=== PATIENT | female | born 1985 | race Caucasian/White ===

== ENCOUNTER 2019-01-24 03:50 | Inpatient (IN) | payer OTHER ==
[2019-01-24] MEDS ORDERED: ELECTROLYTE-148 SOLN 500 ML IV ONE (04:38)
[2019-01-24] MEDS ORDERED: CITRIC ACID/SODIUM CITRATE 30 ML UNIT-DOSE CUP PO ONE (04:38)
--- NOTE | 2019-01-24 04:48 | HP ---
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: Alzheimer's, CVA, Dementia, Migraine, Multiple Sclerosis, Peripheral Neuropathy, Parkinson's, Seizure, Syncope, TIA, Vertigo, Other Cardiovascular: No: AFIB, Aneurysm, Aortic Insufficiency, Aortic Stenosis, CAD, CHF, Deep Vein Thrombosis, HTN, Hyperlipdemia, [place], Mitral Insufficiency, Mitral Stenosis, Murmur, Pulmonary Hypertension, Other Pulmonary: No: Asthma, Bronchitis, Cancer, COPD, O2 Dependent, Pneumonia, Previously Intubated, Pulmonary Embolus, Pulmonary Fibrosis, Sleep Apnea, Other Gastrointestinal: No: Ascites, Cancer, Constipation, Crohn's Disease, Diverticulitis, Diverticulosis, Esophageal Varices, Gastritis, GERD, GI Bleed, Hemorrhoids, Hiatal Hernia, Inflamatory Bowel Disease, Irritable Bowel Disease, Pancreatitis, Peptic Ulcer Disease, Ulcerative Colitis, Other Hepatobiliary: No: Cirrhosis, Cholelithiasis, Cholecystitis, Choledocholithiasis , Hepatitis A, Hepatitis B, Hepatitis C, Other Renal/: No: Renal Failure, Renal Inusuff, BPH, Cancer, Hematuria, Hemodialysis , Neurogenic Bladder, Renal Calculi, UTI, Other Reproductive: No: Ectopic , Endometriosis, Fibroids, PID, Polycystic Ovary Syndrome, Postmenopausal, Other ...: 1 ...Para: 0 ...Term: 0 ... Weeks Gestation by Dates: 39 ...EDC by Dates: 01/31/19 Heme/Onc: No: Anemia, B12 Deficiency, Bleeding Disorder, Cancer, Current Chemotherapy, Current Radiation Therapy, Hemochromatosis, Hypercoaguable State, Myeloproliferative Synd, Sickle Cell Disease, Sickle Cell Trait, Thrombocytopenia, Other Infectious Disease: No: AIDS, C-Diff, Herpes Zoster, HIV, MRSA, STD's, Tuberculosis, VREF, Other Psych: No: Addictions, Anxiety, Bipolar, Depression, Panic, Psychosis, Schizophrenia, Other Musculoskeletal: No: Bursitis, Chronic low back pain, Hemiparesis, Hemiplegia, Osteoarthritis, Paraplegia, Other Rheumatology: No: Fibromyalgia, Gout, Lupus, Rheumatoid Arthritis, Sarcoidosis, Vasculitis, Other ENT: No: Allergic Rhinitis, Sinusitis, Other Endocrine: No: [place]'s Disease, Mayra's Disease, Diabetes Insipidus, Diabetes Mellitus, Hyperparathyroidism, Hyperthyroidism, Hypothyroidism, Osteopenia, SIADH, Other Dermatology: No: Basal Cell, Cellulitis, Eczema, Melanoma, Psoriasis, Squamous Cell, Other - Past Surgical History Past Surgical History: No: None, AAA Repair, AICD, Amputation, Appendectomy, Arthrosocopy, AV Fistula/Graft, Bariatric Surgery, Breast Biopsy, Bypass, CABG, Carotid Endarterectomy, Cataract Removal, Cholecystectomy, Colectomy, Colonoscopy, Colostomy, Craniotomy, , Cystectomy, Hernia Repair, Hysterectomy, Ileal Conduit, Ileosotomy, Joint Replacement, Kidney Transplant, Laminectomy, Liver Transplant, Mastectomy, Nephrectomy, Oopherectomy, Orchiectomy, Permanent Pacemaker, Prostatectomy, Splenectomy, Stent, Thoracotomy , TURP, Tonsillectomy, Tubal Ligation, Upper Endoscopy, Valve Replacement, Vasectomy, Vein Stripping/Ligation Hx Myomectomy: No Hx Transabdominal Cerclage: No - Advance Directives Advance Directives: No: Living Will, Health Care Proxy, DNR, Organ Donor, Tissue Donor, MOLST - Smoking History Smoking history: Current every day smoker Have you smoked in the past 12 months: No - Alcohol/Substance Use Hx Alcohol Use: No History of Substance Use: reports: None - Social History Usual Living Arrangement: Yes: With Significant Other ADL: Independent History of Recent Travel: No Family Disease History - Family Disease History Family History: Denies Review of Systems - Review of Systems Constitutional: reports: No Symptoms Eyes: reports: No Symptoms HENT: reports: No Symptoms Neck: reports: No Symptoms Cardiovascular: reports: No Symptoms Respiratory: reports: No Symptoms Gastrointestinal: reports: No Symptoms Genitourinary: reports: No Symptoms Breasts: reports: No Symptoms Reported Musculoskeletal: reports: No Symptoms Integumentary: reports: No Symptoms Neurological: reports: No Symptoms Endocrine: reports: No Symptoms Hematology/Lymphatic: reports: No Symptoms Psychiatric: reports: No Symptoms Pain Intensity: 0 Physical Exam - Maternity Constitutional: Yes: Well Nourished, No Distress, Calm Eyes: Yes: WNL, Conjunctiva Clear, EOM Intact HENT: Yes: WNL, Atraumatic, Normocephalic Neck: Yes: WNL, Supple, Trachea Midline Cardiovascular: Yes: WNL, Regular Rate and Rhythm Lungs: Clear to auscultation Breast(s): Yes: WNL - Abdominal Exam/OB Fundal Height: 36 Number of Fetuses: Single Presentation: Vertex Contractions: Yes Regularity: Regular Intensity: Mild/Mod Monitor Mode: External Heart Rate Location: [facility] Category: I Accelerations: Uniform Decelerations: None - Vaginal Exam/OB Vaginal Bleediing: No Speculum Exam: No Dilatation (cm): 1 Effacement (%): 20 Amniotic Membrane Status: Intact Presentation: Vertex/Position Station: -3 - Physical Exam Musculoskeletal: Yes: WNL Extremities: Yes: WNL Edema: Yes Edema: LUE: 1+, RUE: 1+, LLE: 1+, RLE: 1+ Integumentary: Yes: WNL Deep Tendon Reflex Grade: Normal +2 ...Motor Strength: WNL Psychiatric: Yes: WNL, Alert, Oriented Hemorrhage Risk Assessment - Risk Factors Risk Score: 1 Risk Level: Medium Risk Assessment/Plan for c s as 5% bpd iugr, 5lb 12 oz, scheduled for monday, in labor now, for c s
[2019-01-24 05:35] VITALS: BMI 29.0
[2019-01-24] MEDS: ELECTROLYTE-148 SOLN 1,000 ML IV SCH (05:45)
[2019-01-24] MEDS ORDERED: ACETAMINOPHEN 325 MG TABLET (FP) PO PRN ×2 (06:07→07:52)
[2019-01-24] MEDS ORDERED: ONDANSETRON 4 MG/2 ML VIAL IVPUSH PRN (06:07)
[2019-01-24] MEDS ORDERED: morphine SULFATE/PF 0.5 MG/ML (2cc Syringe - QUVA) ONE (06:16)
[2019-01-24] MEDS ORDERED: ceFAZolin SODIUM 1 GM VIAL ONE ×2 (06:30)
[2019-01-24] MEDS ORDERED: PHENYLEPHRINE HCL 10 MG/1 ML SINGLE DOSE VIAL ONE (06:32)
[2019-01-24] MEDS ORDERED: OXYTOCIN 10 UNITS/ML VIAL ONE (06:42)
[2019-01-24] MEDS ORDERED: IBUPROFEN 600 MG TABLET (FP) PO PRN (07:52)
[2019-01-24] MEDS ORDERED: oxyCODONE HCL 5 MG TABLET PO PRN (07:52)
[2019-01-24] MEDS ORDERED: METHYLERGONOVINE MALEATE 0.2 MG/1 ML AMP IM PRN (07:52)
--- NOTE | 2019-01-24 07:52 | OP ---
Operative Note - Note: Operative Date: 01/24/19 Pre-Operative Diagnosis: iugr, bpd 5 %, asymmetrical Operation: primary lt cs Findings: can x 1 Post-Operative Diagnosis: Same as Pre-op Surgeon: Pawan Chiang Assistant Director Of Security: Ajith Wayne Anesthesiologist/PROVIDER RELATIONS COORDINATOR: Karsten Olmstead Anesthesia: Spinal Estimated Blood Loss (mls): 500 Operative Report Dictated: Yes
[2019-01-24] MEDS ORDERED: OXYTOCIN 20 UNITS in 0.9% NS 20 UNIT/1,000 ML INFUS.BAG IV ONE (08:48)
[2019-01-24] MEDS: ENOXAPARIN NA (PORCINE) 40 MG/0.4 ML DISP.SYRIN SQ SCH (11:12)
[2019-01-24] MEDS: IBUPROFEN 800 MG/8 ML IJ IVPB PRN (16:12)
[2019-01-24] MEDS: SIMETHICONE 80 MG TAB.CHEW (FP) PO PRN (20:57)
[2019-01-25] MEDS: IBUPROFEN 800 MG/8 ML IJ IVPB PRN (03:52)
[2019-01-25] MEDS ORDERED: BISACODYL 10 MG SUPP.RECT RC PRN (07:58)
[2019-01-25 09:02] LABS: BASO % 0.4 % (0-2.0); EOS % 0.7 % (0-4.5); HEMATOCRIT 31.3 % (32.4-45.2); HEMOGLOBIN 10.4 GM/dL (10.7-15.3); LYMPH % 11.3 % (8-40); MCH 29.3 pg (25.7-33.7); MCHC 33.1 g/dl (32.0-36.0); MEAN CELL VOLUME 88.4 fl (80-96); MEAN PLT VOLUME 10.5 fl (7.5-11.1); MONO % 4.7 % (3.8-10.2); NEUT % 82.9 % (42.8-82.8); PLATELET COUNT 171 K/MM3 (134-434); RBC 3.55 M/mm3 (3.60-5.2); RDW 13.6 % (11.6-15.6); WHITE BLOOD COUNT 12.9 K/mm3 (4.0-10.0)
[2019-01-25] MEDS: oxyCODONE HCL 5 MG TABLET PO PRN ×2 (09:40→16:22)
[2019-01-25] MEDS: SIMETHICONE 80 MG TAB.CHEW (FP) PO PRN ×2 (09:40→16:21)
[2019-01-25] MEDS: IBUPROFEN 600 MG TABLET (FP) PO PRN ×2 (09:41→16:21)
[2019-01-25] MEDS: ENOXAPARIN NA (PORCINE) 40 MG/0.4 ML DISP.SYRIN SQ SCH (09:41)
[2019-01-25] MEDS ORDERED: DIPHTH,PERTUSS(ACELL),TET 0.5 ML DISP.SYRIN IM ONE (10:00)
[2019-01-25] MEDS: ELECTROLYTE-148 SOLN 1,000 ML IV SCH (11:11)
[2019-01-25] MEDS: D5W-LR W/ 20 UNITS OXYTOCIN 20 UNIT/1,000 ML INFUS.BAG IV SCH (11:11)
[2019-01-25] MEDS: DEXTROSE 5%-LACTATED RINGERS 1,000 ML IV SCH (11:11)
--- NOTE | 2019-01-25 16:20 | PN ---
Post Progress Note Post Day: 1 Type of Delivery: Primary C/S Vital Signs: Vital Signs Temperature 97.9 F 01/25/19 10:00 Pulse Rate 62 01/25/19 10:00 Respiratory Rate 20 01/25/19 10:00 Blood Pressure 118/66 01/25/19 10:00 O2 Sat by Pulse Oximetry (%) 100 01/24/19 07:35 Breast Exam: Yes: Soft Uterus: Yes: Fundus Firm, Fundus below umbilicus Incision: Yes: Dressing dry and intact, Sutures intact Abdomen/GI: Yes: Abdomen soft, Passing flatus, Tolerating PO Lochia: Yes: Serosa Lochia, amount: Small Extremities: Yes: Calves non-tender Perineum: Yes: Intact Activity: Ambulating - Labs Labs: CBC WBC 12.9 K/mm3 (4.0-10.0) H 01/25/19 07:31 RBC 3.55 M/mm3 (3.60-5.2) L 01/25/19 07:31 Hgb 10.4 GM/dL (10.7-15.3) L 01/25/19 07:31 Hct 31.3 % (32.4-45.2) L 01/25/19 07:31 MCV 88.4 fl (80-96) 01/25/19 07:31 MCH 29.3 pg (25.7-33.7) 01/25/19 07:31 MCHC 33.1 g/dl (32.0-36.0) 01/25/19 07:31 RDW 13.6 % (11.6-15.6) 01/25/19 07:31 Plt Count 171 K/MM3 (134-434) D 01/25/19 07:31 MPV 10.5 fl (7.5-11.1) 01/25/19 07:31 Absolute Neuts (auto) 10.7 K/mm3 (1.5-8.0) H 01/25/19 07:31 Neutrophils % 82.9 % (42.8-82.8) H D 01/25/19 07:31 Lymphocytes % 11.3 % (8-40) D 01/25/19 07:31 Monocytes % 4.7 % (3.8-10.2) 01/25/19 07:31 Eosinophils % 0.7 % (0-4.5) 01/25/19 07:31 Basophils % 0.4 % (0-2.0) 01/25/19 07:31 Nucleated RBC % 0 % (0-0) 01/25/19 07:31 Assessment/Plan dressing removed, no complications
[2019-01-26] MEDS: SIMETHICONE 80 MG TAB.CHEW (FP) PO PRN ×3 (02:42→19:10)
[2019-01-26] MEDS: IBUPROFEN 600 MG TABLET (FP) PO PRN ×2 (02:42→19:10)
[2019-01-26] MEDS: oxyCODONE HCL 5 MG TABLET PO PRN ×3 (02:43→19:11)
--- NOTE | 2019-01-26 05:12 | OP ---
DATE OF OPERATION: 01/24/2019 PREOPERATIVE DIAGNOSIS: aSymmetrical intrauterine growth retardation, in labor. POSTOPERATIVE DIAGNOSIS: aSymmetrical intrauterine growth retardation, in labor. PROCEDURE: Primary low transverse section. SURGEON: Pawan Green MD SOFT SUGAR CUTTER: AMY Major ANESTHESIOLOGIST: . ANESTHESIA: Spinal. BLOOD LOSS: About 500 mL. INDICATION: This is a 33-year-old female patient late transfer from [place]. Patient came to [place] at around 24 weeks and started here and patient had care in [place]. Patient was found to be IUGR. The baby was about 10th percentile. Has been confirmed by Dr. Chung and the patient's bBd, the head, was persistently less than 10th percentile compared to other part of the body. Estimated weight is about 5 pounds 12 ounces at 39 weeks so patient was scheduled for at 39 weeks and 1 day. Also, the Doppler has been checked and was found to be normal and so patient was advised to be delivered at around 39 weeks. So patient was scheduled for at 39 weeks on January 25. However, patient came to labor in active labor, every 3 minutes marj on January 24 so patient was admitted and patient was prepared and then was taken to the OR for primary low transverse section. PROCEDURE: Patient was placed on the operating table in the supine position. After spinal anesthesia was obtained the patient's abdomen and pelvis were prepped and draped in the usual sterile manner. Pfannenstiel incision was made through the skin, subcutaneous tissue until the fascia was nicked in the midline. The fascia extended bilaterally. Intraperitoneal cavity was entered. Bladder flap was not created. Low transverse segment was entered. Baby delivered from LOT position. There was a cord around the neck x1. Baby was handed over to head greenskeeper after the umbilical cord doubly clamped and cut. Cord blood gas obtained. Placenta was removed. Uterus closed in single layer , first layer interlocking Vicryl sutures. Good hemostasis. Both gutters were cleaned. Both ovaries, fallopian tubes, uterus were within normal limits. No complication. Patient tolerated procedure well. Peritoneum was closed. Fascia was closed. Skin was closed. Transferred to recovery room in stable condition. Blood loss about 500 mL. PAWAN GREEN MD [id number] MTDD
--- NOTE | 2019-01-26 09:00 | PN ---
Progress Note (short form) - Note Progress Note: S/P C section under spinal anesthesia with duramorph uneventful.Patient stable and has little pain for which she is on medication.No any anesthesia related problem.Patient Dc from the anesthesia care.
[2019-01-26] MEDS: DEXTROSE 5%-LACTATED RINGERS 1,000 ML IV SCH ×2 (09:23→19:01)
[2019-01-26] MEDS: D5W-LR W/ 20 UNITS OXYTOCIN 20 UNIT/1,000 ML INFUS.BAG IV SCH ×2 (09:23→19:01)
[2019-01-26] MEDS: ELECTROLYTE-148 SOLN 1,000 ML IV SCH (09:23)
[2019-01-26] MEDS: ENOXAPARIN NA (PORCINE) 40 MG/0.4 ML DISP.SYRIN SQ SCH (09:26)
--- NOTE | 2019-01-26 16:46 | PN ---
Post Progress Note Post Day: 2 Type of Delivery: Primary C/S Vital Signs: Vital Signs Temperature 98.4 F 01/25/19 22:00 Pulse Rate 70 01/25/19 22:00 Respiratory Rate 18 01/25/19 22:00 Blood Pressure 123/74 01/25/19 22:00 O2 Sat by Pulse Oximetry (%) 100 01/24/19 07:35 Breast Exam: Yes: Soft Uterus: Yes: Fundus Firm, Fundus below umbilicus Incision: Yes: Dressing dry and intact Abdomen/GI: Yes: Abdomen soft, Passing flatus, Tolerating PO Lochia: Yes: Serosa Lochia, amount: Small Extremities: Yes: Calves non-tender Activity: Ambulating - Labs Labs: CBC WBC 12.9 K/mm3 (4.0-10.0) H 01/25/19 07:31 RBC 3.55 M/mm3 (3.60-5.2) L 01/25/19 07:31 Hgb 10.4 GM/dL (10.7-15.3) L 01/25/19 07:31 Hct 31.3 % (32.4-45.2) L 01/25/19 07:31 MCV 88.4 fl (80-96) 01/25/19 07:31 MCH 29.3 pg (25.7-33.7) 01/25/19 07:31 MCHC 33.1 g/dl (32.0-36.0) 01/25/19 07:31 RDW 13.6 % (11.6-15.6) 01/25/19 07:31 Plt Count 171 K/MM3 (134-434) D 01/25/19 07:31 MPV 10.5 fl (7.5-11.1) 01/25/19 07:31 Absolute Neuts (auto) 10.7 K/mm3 (1.5-8.0) H 01/25/19 07:31 Neutrophils % 82.9 % (42.8-82.8) H D 01/25/19 07:31 Lymphocytes % 11.3 % (8-40) D 01/25/19 07:31 Monocytes % 4.7 % (3.8-10.2) 01/25/19 07:31 Eosinophils % 0.7 % (0-4.5) 01/25/19 07:31 Basophils % 0.4 % (0-2.0) 01/25/19 07:31 Nucleated RBC % 0 % (0-0) 01/25/19 07:31 Assessment/Plan doing well, dc pt home tomorrow
--- NOTE | 2019-01-26 16:49 | DS ---
Physical Exam-CAR REPAIRER APPRENTICE Vital Signs: Vital Signs Temperature 98.4 F 01/25/19 22:00 Pulse Rate 70 01/25/19 22:00 Respiratory Rate 18 01/25/19 22:00 Blood Pressure 123/74 01/25/19 22:00 O2 Sat by Pulse Oximetry (%) 100 01/24/19 07:35 Constitutional: Yes: Well Nourished, No Distress, Calm Eyes: Yes: WNL, Conjunctiva Clear, EOM Intact HENT: Yes: WNL, Atraumatic, Normocephalic Neck: Yes: WNL, Supple, Trachea Midline Cardiovascular: Yes: WNL, Regular Rate and Rhythm Respiratory: Yes: WNL, Regular, CTA Bilaterally Gastrointestinal: Yes: WNL, Normal Bowel Sounds, Soft ...Rectal Exam: Yes: WNL Renal/: Yes: WNL Pelvis: Yes: WNL External Genitalia: Yes: Normal Internal Exam Deferred: No Vaginal Exam: Yes: Normal Cervix: Yes: Normal Uterus: Yes: Normal Adnexa: Normal: Bilateral ....Post : Yes: Uterus firm, Uterus non-tender Breast(s): Yes: WNL Musculoskeletal: Yes: WNL Extremities: Yes: WNL Edema: Yes Edema: LUE: 1+, RUE: 1+, LLE: 1+, RLE: 1+ Integumentary: Yes: WNL Wound/Incision: Yes: Clean/Dry, Well Approximated Neurological: Yes: WNL, Alert, Oriented ...Motor Strength: WNL Psychiatric: Yes: WNL, Alert, Oriented Labs: CBC, BMP 01/25/19 07:31 Delivery - Delivery Section: Primary Type of Anesthesia: Spinal Episiotomy/Laceration: None EBL (cc): 500 Delivery, Single - Stages of Labor Date of Delivery: 01/24/19 Time of Delivery: 06:45 Time Placenta Delivered: 06:46 - Condition of Infant [place] Manager/Harpoon Engagement Planning Operator Present: Yes Name: Nafisa Maciel Gender: Female Weight: 2.75 kg Position: Right, OA Total Hours ROM (Hrs/Mins): 3 MINS - 1 Minute Total Score: 9 5 Minutes Total Score: 9 - Feeding Plan Initial Plan: Elected not to breastfeed exclusively throughout hospitalization Benefits of Exclusively reinforced: Yes Discharge Summary Reason For Visit: ADMIT C/SECTION Condition: Stable - Instructions Diet, Activity, Other Instructions: regular - Home Medications Comprehensive Discharge Medication List: Ambulatory Orders Vit No.129/Iron/Folic [ One Daily Tablet] 1 each PO DAILY 01/24 dc pt home tomorrow
[2019-01-27] MEDS: SIMETHICONE 80 MG TAB.CHEW (FP) PO PRN ×2 (05:22→09:17)
[2019-01-27] MEDS: IBUPROFEN 600 MG TABLET (FP) PO PRN ×2 (05:22→09:17)
[2019-01-27] MEDS: oxyCODONE HCL 5 MG TABLET PO PRN (05:22)
--- NOTE | 2019-01-27 05:49 | PN ---
Post Progress Note Post Day: 3 Type of Delivery: Primary C/S Vital Signs: Vital Signs Temperature 98.3 F 01/26/19 22:00 Pulse Rate 68 01/26/19 22:00 Respiratory Rate 18 01/26/19 22:00 Blood Pressure 111/62 01/26/19 22:00 O2 Sat by Pulse Oximetry (%) 100 01/24/19 07:35 Breast Exam: Yes: Soft Uterus: Yes: Fundus Firm, Fundus below umbilicus Incision: Yes: Dressing dry and intact, Sutures intact Abdomen/GI: Yes: Abdomen soft, Abdominal Distention, Passing flatus, Tolerating PO Lochia: Yes: Serosa Lochia, amount: Small Extremities: Yes: Calves non-tender Perineum: Yes: Intact Activity: Ambulating - Labs Labs: CBC WBC 12.9 K/mm3 (4.0-10.0) H 01/25/19 07:31 RBC 3.55 M/mm3 (3.60-5.2) L 01/25/19 07:31 Hgb 10.4 GM/dL (10.7-15.3) L 01/25/19 07:31 Hct 31.3 % (32.4-45.2) L 01/25/19 07:31 MCV 88.4 fl (80-96) 01/25/19 07:31 MCH 29.3 pg (25.7-33.7) 01/25/19 07:31 MCHC 33.1 g/dl (32.0-36.0) 01/25/19 07:31 RDW 13.6 % (11.6-15.6) 01/25/19 07:31 Plt Count 171 K/MM3 (134-434) D 01/25/19 07:31 MPV 10.5 fl (7.5-11.1) 01/25/19 07:31 Absolute Neuts (auto) 10.7 K/mm3 (1.5-8.0) H 01/25/19 07:31 Neutrophils % 82.9 % (42.8-82.8) H D 01/25/19 07:31 Lymphocytes % 11.3 % (8-40) D 01/25/19 07:31 Monocytes % 4.7 % (3.8-10.2) 01/25/19 07:31 Eosinophils % 0.7 % (0-4.5) 01/25/19 07:31 Basophils % 0.4 % (0-2.0) 01/25/19 07:31 Nucleated RBC % 0 % (0-0) 01/25/19 07:31 Assessment/Plan dc pt home today
[2019-01-27 06:46] LABS: BASO % 0.4 % (0-2.0); EOS % 3.3 % (0-4.5); HEMATOCRIT 29.3 % (32.4-45.2); HEMOGLOBIN 9.9 GM/dL (10.7-15.3); LYMPH % 24.7 % (8-40); MCH 29.9 pg (25.7-33.7); MCHC 33.9 g/dl (32.0-36.0); MEAN CELL VOLUME 88.1 fl (80-96); MONO % 7.3 % (3.8-10.2); NEUT % 64.3 % (42.8-82.8); PLATELET COUNT 209 K/MM3 (134-434); RBC 3.33 M/mm3 (3.60-5.2); RDW 13.8 % (11.6-15.6); WHITE BLOOD COUNT 9.4 K/mm3 (4.0-10.0)
[2019-01-27] MEDS: ENOXAPARIN NA (PORCINE) 40 MG/0.4 ML DISP.SYRIN SQ SCH (09:17)
[2019-01-27 10:28] VITALS: BP 129/85; PULSE 77; TEMP 98.5
--- NOTE | 2019-01-29 20:18 | PATH ---
Surgical Pathology Report Patient Name: CIARA DORANTES [facility]. Rec. 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 Electronically Signed Jyoti Boone M.D. Gross Description The specimen is received fresh labeled placenta and is a 368 gram, 16.5 x 16.0 x 2.1 cm. placenta with attached membranes and umbilical cord. The attached membranes are gasca, translucent with focal opacities and insert marginally. The umbilical cord measures 30 cm. in length and averages 0.9 cm. in diameter. The cord inserts eccentrically, 4 cm. to the nearest margin. No true knots or strictures are identified. Cut surface of the umbilical cord reveals 3 vessels. The surface is coffey-blue with minimal fibrin deposition and appropriate caliber vessels. The maternal surface is red-brown with focal defects. Sectioning reveals red-brown, spongy parenchyma. No lesions are identified. Veterans Services Specialist sections are submitted in three cassettes as follows: 1- membrane rolls and umbilical cord; 2-3- full thickness sections of placenta. /01/28/2019 saudi01/28/2019
== END 2019-01-27 12:14 | disposition home or self-care (01) | DRG 540 ==
LOC: JLDR 03:50 → J3W 09:40
PROVIDERS: ADMIT Obstetrics & Gynecology; ATTEND Obstetrics & Gynecology
PROC: 10D00Z1 Extraction of Products of Conception, Low, Open Approach (ICD-10-PCS; principal; 2019-01-24)
DX: O36.5930 Maternal care for other known or suspected poor fetal growth, third trimester, not applicable or unspecified (principal); Z3A.39 39 weeks gestation of pregnancy; Z37.0 Single live birth
CPT/HCPCS: 36415; 85025; 86850; 86900; 86901; 87340; 88307-TC; 90715